=== PATIENT | female | born 1980 | race Two or more races ===

== ENCOUNTER 2018-01-09 09:15 | Outpatient (CLI) | payer OTHER | END 2018-01-09 10:25 | disposition home or self-care (01) | LOC: OBT 09:15 → L-D 09:15 → OBT 10:25 | DX: O09.523 Supervision of elderly multigravida, third trimester (principal); O36.8130 Decreased fetal movements, third trimester, not applicable or unspecified; O41.03X0 Oligohydramnios, third trimester, not applicable or unspecified; Z3A.37 37 weeks gestation of pregnancy | CPT/HCPCS: 76818 ==

== ENCOUNTER 2018-01-10 10:19 | Outpatient (CLI) | payer OTHER | END 2018-01-10 11:50 | disposition home or self-care (01) | LOC: OBT 10:19 → L-D 10:19 → OBT 11:50 | DX: O41.03X0 Oligohydramnios, third trimester, not applicable or unspecified (principal); O09.523 Supervision of elderly multigravida, third trimester; Z3A.37 37 weeks gestation of pregnancy | CPT/HCPCS: 76818 ==

== ENCOUNTER 2018-01-16 08:59 | Outpatient (CLI) | payer OTHER | END 2018-01-16 10:37 | disposition home or self-care (01) | LOC: OBT 08:59 → L-D 09:00 → OBT 10:37 | DX: O99.283 Endocrine, nutritional and metabolic diseases complicating pregnancy, third trimester (principal); E03.9 Hypothyroidism, unspecified; O09.523 Supervision of elderly multigravida, third trimester; Z3A.38 38 weeks gestation of pregnancy | CPT/HCPCS: 76818 ==

== ENCOUNTER 2018-01-21 07:27 | Inpatient (IN) | payer OTHER ==
[2018-01-21] MEDS ORDERED: METHYLERGONOVINE 0.2 MG INJ IM ×2 (08:00→11:30)
[2018-01-21] MEDS ORDERED: OXYTOCIN 30 UNITS/LR 500 ML IV ×4 (08:00→11:30)
[2018-01-21] MEDS ORDERED: MISOPROSTOL 200 MCG TAB PR ×2 (08:00→11:30)
[2018-01-21] MEDS ORDERED: CARBOPROST 250 MCG INJ IM ×2 (08:00→11:30)
[2018-01-21] MEDS: LACTATED RINGER'S 1,000 ML IV ×2 (08:20→16:57)
[2018-01-21 08:48] LABS: ADD MAN DIFF? NO
[2018-01-21 09:00] LABS: WHITE BLOOD COUNT 7.7 10^3/ul (4.8-10.8)
[2018-01-21 09:00] LABS: BASOPHIL # 0.1 10^3/ul (0.0-0.1); BASOPHILS % 0.8 % (0.0-2.0); EOSINOPHILS # 0.1 10^3/ul (0.0-0.5); EOSINOPHILS % 1.7 % (0.0-7.0); HEMATOCRIT 39.6 % (37.0-47.0); HEMOGLOBIN 13.3 g/dl (12.0-16.0); LYMPHOCYTES # 1.6 10^3/ul (0.8-2.9); LYMPHOCYTES % 21.3 % (15.0-51.0); MEAN CORPUSCULAR HEMOGLOBIN 32.6 pg (29.0-33.0); MEAN CORPUSCULAR HGB CONC 33.6 g/dl (32.0-37.0); MEAN CORPUSCULAR VOLUME 97.1 fl (82.0-101.0); MEAN PLATELET VOLUME 10.5 fl (7.4-10.4); MONOCYTE # 0.7 10^3/ul (0.3-0.9); MONOCYTES % 8.6 % (0.0-11.0); NEUTROPHIL # 5.1 10^3/ul (1.6-7.5); NEUTROPHILS % 65.8 % (39.0-77.0); PLATELET COUNT 165 10^3/UL (140-415); RED BLOOD COUNT 4.08 10^6/ul (4.20-5.40); RED CELL DISTRIBUTION WIDTH 14.6 % (11.5-14.5)
[2018-01-21 09:41] LABS: INR 0.93; PROTIME 12.6 Sec (11.9-14.9)
[2018-01-21 09:42] LABS: PARTIAL THROMBOPLASTIN TIME 28.1 Sec (25.0-35.0)
[2018-01-21 09:52] LABS: HEPATITIS B SURFACE ANTIGEN NEGATIVE (NEGATIVE)
[2018-01-21] MEDS ORDERED: EPHEDrine SULFATE 50 MG/5 ML SYG (10:02)
[2018-01-21] MEDS ORDERED: morphine SULFATE/PF (10 MG/10 ML) INJ (10:03)
[2018-01-21] MEDS ORDERED: OXYTOCIN 10 UNIT INJ ×2 (10:03→10:53)
[2018-01-21] MEDS ORDERED: ONDANSETRON 4 MG INJ (10:03)
[2018-01-21] MEDS ORDERED: METOCLOPRAMIDE 10 MG INJ (10:03)
[2018-01-21] MEDS: CEFAZOLIN 2 GM/50 ML (PMX) 50 ML IV ×3 (11:26→19:50)
[2018-01-21] MEDS ORDERED: morphine 2 MG INJ IV ×2 (11:30)
[2018-01-21] MEDS ORDERED: ONDANSETRON 4 MG INJ IV (11:30)
[2018-01-21] MEDS ORDERED: DIPHENHYDRAMINE 50 MG INJ IV (11:30)
[2018-01-21] MEDS ORDERED: EPHEDrine SULFATE 50 MG/5 ML SYG IV (11:30)
[2018-01-21] MEDS ORDERED: NALOXONE (0.4 MG/ML) INJ IV (11:30)
[2018-01-21] MEDS: morphine SULFATE/PF (10 MG/10 ML) INJ SPINAL (11:34)
[2018-01-21] MEDS: IBUPROFEN 600 MG TAB PO ×2 (12:00→18:00)
[2018-01-21] MEDS: OXYTOCIN 30 UNITS/LR 500 ML IV (12:30)
[2018-01-21] MEDS: SENNA/DOCUSATE NA (8.6MG/50MG) TAB PO (20:13)
[2018-01-21 22:05] LABS: RAPID PLASMA REAGIN NONREACTIVE (NR)
[2018-01-21] MEDS: KETOROLAC 30 MG INJ IV (22:09)
[2018-01-22] MEDS: LACTATED RINGER'S 1,000 ML IV ×3 (02:30→15:41)
[2018-01-22] MEDS: CEFAZOLIN 2 GM/50 ML (PMX) 50 ML IV (04:11)
[2018-01-22] MEDS: IBUPROFEN 600 MG TAB PO ×5 (06:00→23:29)
[2018-01-22] MEDS: KETOROLAC 30 MG INJ IV (06:55)
[2018-01-22 08:46] LABS: ADD MAN DIFF? NO
[2018-01-22 09:05] LABS: BASOPHIL # 0.1 10^3/ul (0.0-0.1); BASOPHILS % 0.4 % (0.0-2.0); EOSINOPHILS # 0.2 10^3/ul (0.0-0.5); EOSINOPHILS % 1.4 % (0.0-7.0); HEMATOCRIT 33.6 % (37.0-47.0); LYMPHOCYTES # 1.3 10^3/ul (0.8-2.9); LYMPHOCYTES % 10.7 % (15.0-51.0); MEAN CORPUSCULAR HEMOGLOBIN 32.6 pg (29.0-33.0); MEAN CORPUSCULAR HGB CONC 32.7 g/dl (32.0-37.0); MEAN CORPUSCULAR VOLUME 99.7 fl (82.0-101.0); MEAN PLATELET VOLUME 10.2 fl (7.4-10.4); MONOCYTE # 0.7 10^3/ul (0.3-0.9); MONOCYTES % 5.9 % (0.0-11.0); NEUTROPHIL # 9.6 10^3/ul (1.6-7.5); NEUTROPHILS % 80.8 % (39.0-77.0); PLATELET COUNT 148 10^3/UL (140-415); RED BLOOD COUNT 3.37 10^6/ul (4.20-5.40); RED CELL DISTRIBUTION WIDTH 14.6 % (11.5-14.5)
[2018-01-22 09:05] LABS: WHITE BLOOD COUNT 11.9 10^3/ul (4.8-10.8)
[2018-01-22] MEDS: SENNA/DOCUSATE NA (8.6MG/50MG) TAB PO ×2 (09:37→21:45)
[2018-01-22] MEDS ORDERED: LEVOTHYROXINE 25 MCG TAB PO (12:00)
[2018-01-22] MEDS: OXYCODONE/ACETAMINOPHEN (5/325) TAB PO (13:09)
[2018-01-23] MEDS: IBUPROFEN 600 MG TAB PO ×3 (05:32→18:21)
[2018-01-23] MEDS: LEVOTHYROXINE 25 MCG TAB PO (05:32)
[2018-01-23] MEDS: SENNA/DOCUSATE NA (8.6MG/50MG) TAB PO ×2 (09:22→21:11)
[2018-01-23] MEDS: OXYCODONE/ACETAMINOPHEN (5/325) TAB PO ×2 (11:15→22:13)
[2018-01-23] MEDS: LANOLIN 7 GM TUBE TOP (21:12)
[2018-01-24] MEDS: IBUPROFEN 600 MG TAB PO ×3 (00:16→12:09)
[2018-01-24] MEDS: LEVOTHYROXINE 25 MCG TAB PO (05:56)
[2018-01-24] MEDS: SENNA/DOCUSATE NA (8.6MG/50MG) TAB PO (09:28)
[2018-01-24] MEDS: OXYCODONE/ACETAMINOPHEN (5/325) TAB PO (10:32)
== END 2018-01-24 14:20 | disposition home or self-care (01) | DRG 766 ==
LOC: L-D 07:27 → PP1 15:28
PROVIDERS: Obstetrics & Gynecology
PROC: 10D00Z1 Extraction of Products of Conception, Low, Open Approach (ICD-10-PCS; principal; 2018-01-22)
PROC: 3E033VJ Introduction of Other Hormone into Peripheral Vein, Percutaneous Approach (ICD-10-PCS; 2018-01-22)
DX: O34.211 Maternal care for low transverse scar from previous cesarean delivery (principal); E03.9 Hypothyroidism, unspecified; O99.284 Endocrine, nutritional and metabolic diseases complicating childbirth; Z3A.39 39 weeks gestation of pregnancy; Z37.0 Single live birth
CPT/HCPCS: 85025; 85610; 85730; 86592; 86850; 86900; 86901; 87340; 94760; 99464